=== PATIENT | male | born 1965 | race Caucasian/White ===

== ENCOUNTER 2024-12-12 08:23 | Outpatient (CLI) | payer BC, SELFPAY | END 2024-12-12 08:24 | disposition home or self-care (01) | LOC: LKVREF 08:26 | PROVIDERS: PCP Family Medicine; Visit Provider Family Medicine | DX: Z12.5 Encounter for screening for malignant neoplasm of prostate (principal) | CPT/HCPCS: G0103 ==

== ENCOUNTER 2025-02-02 14:43 | Outpatient (CLI) | payer BC, SELFPAY | END 2025-02-02 14:44 | disposition home or self-care (01) | LOC: LKVREF 14:46 | PROVIDERS: PCP Family Medicine; Visit Provider Family Medicine | DX: M10.9 Gout, unspecified (principal) | CPT/HCPCS: 84550 ==